=== PATIENT | female | born 1950 | race Caucasian/White ===

== ENCOUNTER 2018-04-15 12:29 | Inpatient (IN) | payer MEDICARE, OTHER ==
[~2018-04-15] VITALS: Ht 175.3 cm; Wt 71.0 kg
[2018-04-15] MEDS ORDERED: diltiazem 5mg/ml 5ml inj. IV ONE (12:45)
[2018-04-15] MEDS ORDERED: normal saline 1000ML IV soln IVB ONE (12:45)
[2018-04-15 13:02] LABS: BASOPHILS % (AUTO) 0.6 % (0-1); EOSINOPHILS # (AUTO) 0.6 X10'3 (0-0.9); HEMATOCRIT 42.7 % (35.0-45.0); HEMOGLOBIN 14.9 g/dl (12.0-16.0); LYMPHOCYTES # (AUTO) 1.9 X10'3 (1.1-4.8); LYMPHOCYTES % (AUTO) 23.8 % (21-51); MEAN CORPUSCULAR HGB CONC 34.8 % (33.0-36.5); MEAN CORPUSCULAR VOLUME 100.6 FL (78-98); MEAN PLATELET VOLUME 7.6 FL (7.4-10.4); MONOCYTES # (AUTO) 0.6 X10'3 (0-0.9); MONOCYTES % (AUTO) 7.4 % (2-12); NEUTROPHILS # (AUTO) 4.7 X10'3 (1.8-7.7); NEUTROPHILS % (AUTO) 60.2 % (42-75); PLATELET COUNT 271 X10'3 (140-440); RED BLOOD COUNT 4.24 X10'6 (4.20-5.60); RED CELL DISTRIBUTION WIDTH 17.5 % (11.5-14.5); WHITE BLOOD COUNT 7.8 X10'3 (4.5-11.0)
[2018-04-15 13:13] LABS: PARTIAL THROMBOPLASTIN TIME 26 SECONDS (22-32); PROTHROMBIN TIME 10.6 SECONDS (9.0-12.0)
[2018-04-15 13:19] LABS: ALANINE AMINOTRANSFERASE 19 U/L (12-78); ALBUMIN 3.4 G/DL (3.4-5.0); ALBUMIN/GLOBULIN RATIO 0.9 (1.1-1.5); ALKALINE PHOSPHATASE 76 IU/L (46-116); ANION GAP 7 (8-16); ASPARTATE AMINO TRANSFERASE 22 U/L (10-37); BILIRUBIN,TOTAL 0.7 MG/DL (0.1-1.0); BLOOD UREA NITROGEN 11 MG/DL (7-18); BUN/CREATININE RATIO 10.3 (6.6-38.0); CALCIUM 9.5 MG/DL (8.5-10.1); CHLORIDE 99 MMOL/L (99-107); CREATININE 1.07 MG/DL (0.40-0.90); GLUCOSE 143 MG/DL (70-104); SODIUM 135 MMOL/L (135-145); TOTAL CARBON DIOXIDE 28.7 MMOL/L (24-32); eGFR 51 ML/MIN
[2018-04-15 13:21] LABS: POTASSIUM 2.8 MMOL/L (3.5-5.1)
[2018-04-15] MEDS ORDERED: potass W/LIDOcaine 10mEq/100ml 100 ML IV ONE (13:25)
[2018-04-15] MEDS ORDERED: potassium Cl oral solution 20 MEQ/15 ML PO ONE (13:25)
[2018-04-15 13:28] LABS: CLARITY,URINE CLEAR (Clear); COLOR,URINE YELLOW (Yellow); GLUCOSE, URINE NEGATIVE (Neg); KETONES,URINE TRACE mg/dl (Neg); LEUKOCYTE ESTERASE ,URINE NEGATIVE (Neg); NITRITES, URINE NEGATIVE (Neg); OCCULT BLOOD,URINE NEGATIVE (Neg); PROTEIN,URINE 30 mg/dl (Neg); UROBILINOGEN,URINE 0.2 E.U/dL (0.2-1.0)
[2018-04-15] MEDS ORDERED: potassium 10mEq/100ml NS w/LIDOcaine (10mg/bag) IV ONE (13:35)
[2018-04-15 13:37] LABS: UA COLLECTION TYPE CLN CATCH MIDSTREAM
[2018-04-15 13:38] LABS: BACTERIA,URINE 1+ /HPF (Neg); MUCUS STRANDS MODERATE /LPF (Neg); RBC,URINE NONE SEEN /HPF (0-2); SQUAMOUS EPITHELIAL CELL,UR MANY /LPF (FEW); WBC,URINE 0-4 /HPF (0-4)
[2018-04-15 13:39] LABS: URINE AMPHETAMINE SCREEN POSITIVE (Neg); URINE BARBITUATE SCREEN NEGATIVE (Neg); URINE BENZODIAZEPINES SCREEN NEGATIVE (Neg); URINE CANNABINOID SCREEN POSITIVE (Neg); URINE COCAINE SCREEN NEGATIVE (Neg); URINE METHADONE SCREEN NEGATIVE (Neg); URINE OPIATE SCREEN NEGATIVE (Neg); URINE PHENCYCLIDINE SCREEN NEGATIVE (Neg)
[2018-04-15 13:44] LABS: MAGNESIUM 1.6 MG/DL (1.5-2.4); PHOSPHORUS 3.3 MG/DL (2.3-4.5)
[2018-04-15] MEDS ORDERED: normal saline 1000ml 1,000 ML IV ONE (13:45)
[2018-04-15] MEDS ORDERED: magnesium hydroxide 30ml (MOM) UD suspension PO PRN (14:25)
[2018-04-15] MEDS ORDERED: mag hydrox/Alum hydrox/simeth 30ml oral suspension PO PRN (14:25)
[2018-04-15] MEDS ORDERED: morphine 4 MG/ML inj SYRINge IV PRN (14:25)
[2018-04-15] MEDS ORDERED: Ivermectin 3mg tablet PO ONE ×2 (14:25→14:30)
[2018-04-15] MEDS ORDERED: iohexol 350MG/ML 100ml bottle IV ONE (14:49)
[2018-04-15] MEDS: magnesium 1gm/100ml D5W IVPB 100 ML IV SCH ×2 (16:10→16:55)
[2018-04-15 16:11] LABS: HEMOGLOBIN A1C 5.4 % (4.5-6.2)
[2018-04-15] MEDS ORDERED: magnesium 1gm/100ml D5W IVPB 100 ML IV ONE (16:53)
[2018-04-15] MEDS ORDERED: regadenoson 0.4mg/5ml syringe IV ONE (17:10)
[2018-04-15] MEDS ORDERED: digoxin 250mcg/ml 2ml ampule IV ONE (17:10)
[2018-04-15] MEDS ORDERED: nitroGLYCERIN 0.4mg SUBLingual tab SL PRN (17:10)
[2018-04-15] MEDS ORDERED: CAFFEINE CITRATE 60 MG/3 ML injection vial IV PRN (17:10)
[2018-04-15] MEDS ORDERED: metoprolol tartrate 1mg/ml inj IV PRN (17:10)
[2018-04-15] MEDS ORDERED: Permethrin Cream 60gm TP ONE (17:10)
[2018-04-15] MEDS: potassium cl 20mEq in 1/2 NS 1,000 ML IV SCH (18:01)
[2018-04-15] MEDS: normal saline 1000ml 1,000 ML IV SCH ×2 (19:00→22:10)
[2018-04-15 22:00] VITALS: BP 140/88
[2018-04-15] MEDS: apixaban 5mg tablet PO SCH (22:16)
[2018-04-16] MEDS: potassium cl 20mEq in 1/2 NS 1,000 ML IV SCH ×3 (00:24→20:40)
[2018-04-16] MEDS ORDERED: Permethrin 1% 59ml topical rinse TP ONE (00:50)
[2018-04-16 02:00] VITALS: BP 131/81
[2018-04-16 02:37] LABS: BASOPHILS % (AUTO) 0.4 % (0-1); EOSINOPHILS # (AUTO) 0.9 X10'3 (0-0.9); EOSINOPHILS % (AUTO) 13.1 % (0-6); HEMOGLOBIN 15.3 g/dl (12.0-16.0); LYMPHOCYTES # (AUTO) 2.1 X10'3 (1.1-4.8); LYMPHOCYTES % (AUTO) 32.3 % (21-51); MEAN CORPUSCULAR HEMOGLOBIN 35.2 PG (27.0-31.0); MEAN CORPUSCULAR VOLUME 103.4 FL (78-98); MEAN PLATELET VOLUME 7.8 FL (7.4-10.4); MONOCYTES # (AUTO) 0.6 X10'3 (0-0.9); MONOCYTES % (AUTO) 8.6 % (2-12); NEUTROPHILS % (AUTO) 45.6 % (42-75); PLATELET COUNT 233 X10'3 (140-440); RED BLOOD COUNT 4.35 X10'6 (4.20-5.60); RED CELL DISTRIBUTION WIDTH 18.3 % (11.5-14.5); WHITE BLOOD COUNT 6.7 X10'3 (4.5-11.0)
[2018-04-16 02:56] LABS: ALANINE AMINOTRANSFERASE 22 U/L (12-78); ALBUMIN 3.1 G/DL (3.4-5.0); ALBUMIN/GLOBULIN RATIO 0.8 (1.1-1.5); ALKALINE PHOSPHATASE 71 IU/L (46-116); ANION GAP 4 (8-16); ASPARTATE AMINO TRANSFERASE 21 U/L (10-37); BILIRUBIN,TOTAL 0.6 MG/DL (0.1-1.0); BLOOD UREA NITROGEN 9 MG/DL (7-18); BUN/CREATININE RATIO 10.5 (6.6-38.0); CALCIUM 8.7 MG/DL (8.5-10.1); CHLORIDE 109 MMOL/L (99-107); CHOL/HDL RATIO 3.7 (0.00-4.99); CHOLESTEROL 155 MG/DL (0-200); CREATININE 0.86 MG/DL (0.40-0.90); GLUCOSE 80 MG/DL (70-104); HDL CHOLESTEROL 42 MG/DL (35-60); LDL CHOLESTEROL 96 MG/DL (50-100); MAGNESIUM 2.1 MG/DL (1.5-2.4); PHOSPHORUS 3.2 MG/DL (2.3-4.5); POTASSIUM 3.8 MMOL/L (3.5-5.1); SODIUM 140 MMOL/L (135-145); TOTAL CARBON DIOXIDE 26.8 MMOL/L (24-32); TOTAL PROTEIN 6.8 G/DL (6.4-8.2); TRIGLYCERIDES 86 MG/DL (20-135); eGFR 66 ML/MIN
[2018-04-16] MEDS: normal saline 1000ml 1,000 ML IV SCH ×2 (03:32→08:10)
[2018-04-16] MEDS: apixaban 5mg tablet PO SCH ×2 (08:00→19:37)
[2018-04-16] MEDS: enoxaparin 40mg/0.4ml syringe SUBCUT SCH (08:00)
[2018-04-16] MEDS ORDERED: NO HOME MEDS (11:32)
[2018-04-16] MEDS ORDERED: NAPR-1154 PO (12:15)
[2018-04-16] MEDS ORDERED: Permethrin Cream 60gm TP ONE (12:15)
[2018-04-16] MEDS ORDERED: ASPI-1265 PO (12:15)
[2018-04-16 19:00] VITALS: BP 111/66
[2018-04-16] MEDS: acetaminophen 325mg tablet PO PRN (19:46)
[2018-04-16 23:00] VITALS: BP 121/68
[2018-04-16] MEDS: ondansetron/PF 4mg/2ml inj IV PRN (23:54)
[2018-04-17] MEDS: acetaminophen 325mg tablet PO PRN (02:18)
[2018-04-17 03:00] VITALS: BP 125/71
[2018-04-17] MEDS: normal saline 1000ml 1,000 ML IV SCH (05:30)
[2018-04-17 06:00] VITALS: BP 127/71
[2018-04-17 06:50] LABS: BASOPHILS % (AUTO) 0.7 % (0-1); EOSINOPHILS # (AUTO) 0.6 X10'3 (0-0.9); EOSINOPHILS % (AUTO) 9.7 % (0-6); HEMATOCRIT 38.4 % (35.0-45.0); LYMPHOCYTES # (AUTO) 1.8 X10'3 (1.1-4.8); LYMPHOCYTES % (AUTO) 30.7 % (21-51); MEAN CORPUSCULAR HGB CONC 33.9 % (33.0-36.5); MEAN CORPUSCULAR VOLUME 103.2 FL (78-98); MEAN PLATELET VOLUME 8.1 FL (7.4-10.4); MONOCYTES # (AUTO) 0.5 X10'3 (0-0.9); MONOCYTES % (AUTO) 7.8 % (2-12); NEUTROPHILS % (AUTO) 51.1 % (42-75); PLATELET COUNT 216 X10'3 (140-440); RED BLOOD COUNT 3.72 X10'6 (4.20-5.60); RED CELL DISTRIBUTION WIDTH 18.4 % (11.5-14.5); WHITE BLOOD COUNT 5.8 X10'3 (4.5-11.0)
[2018-04-17 07:33] LABS: ALANINE AMINOTRANSFERASE 19 U/L (12-78); ALBUMIN 2.6 G/DL (3.4-5.0); ALBUMIN/GLOBULIN RATIO 0.8 (1.1-1.5); ALKALINE PHOSPHATASE 60 IU/L (46-116); ANION GAP 6 (8-16); ASPARTATE AMINO TRANSFERASE 24 U/L (10-37); BILIRUBIN,TOTAL 0.3 MG/DL (0.1-1.0); BLOOD UREA NITROGEN 4 MG/DL (7-18); BUN/CREATININE RATIO 6.3 (6.6-38.0); CALCIUM 8.3 MG/DL (8.5-10.1); CHLORIDE 112 MMOL/L (99-107); CREATININE 0.64 MG/DL (0.40-0.90); GLUCOSE 82 MG/DL (70-104); MAGNESIUM 1.7 MG/DL (1.5-2.4); PHOSPHORUS 3.3 MG/DL (2.3-4.5); POTASSIUM 3.9 MMOL/L (3.5-5.1); SODIUM 143 MMOL/L (135-145); TOTAL CARBON DIOXIDE 25.3 MMOL/L (24-32); TOTAL PROTEIN 5.7 G/DL (6.4-8.2); eGFR > 90 ML/MIN
[2018-04-17] MEDS: apixaban 5mg tablet PO SCH ×2 (09:25→20:00)
[2018-04-17] MEDS: enoxaparin 40mg/0.4ml syringe SUBCUT SCH (09:26)
[2018-04-17] MEDS: ondansetron/PF 4mg/2ml inj IV PRN (09:31)
[2018-04-17] MEDS ORDERED: ondansetron 4mg rapidly disintigrating tab PO PRN (10:35)
[2018-04-17] MEDS ORDERED: meclizine 12.5mg tablet PO PRN (10:35)
[2018-04-17 11:00] VITALS: BP 135/75
[2018-04-17 15:00] VITALS: BP 138/82
[2018-04-17 19:00] VITALS: BP 121/74
[2018-04-17] MEDS: HYDROcodone/acetaminophen 5mg/325mg tablet PO PRN (21:31)
[2018-04-17 23:00] VITALS: BP 125/69
[2018-04-18 03:00] VITALS: BP 107/59
[2018-04-18 06:00] VITALS: BP 144/83
[2018-04-18 06:13] LABS: BASOPHILS % (AUTO) 0.4 % (0-1); EOSINOPHILS # (AUTO) 0.4 X10'3 (0-0.9); EOSINOPHILS % (AUTO) 6.9 % (0-6); HEMATOCRIT 41.1 % (35.0-45.0); HEMOGLOBIN 13.8 g/dl (12.0-16.0); LYMPHOCYTES # (AUTO) 1.5 X10'3 (1.1-4.8); LYMPHOCYTES % (AUTO) 23.9 % (21-51); MEAN CORPUSCULAR HGB CONC 33.6 % (33.0-36.5); MEAN PLATELET VOLUME 8.1 FL (7.4-10.4); MONOCYTES # (AUTO) 0.4 X10'3 (0-0.9); MONOCYTES % (AUTO) 7.2 % (2-12); NEUTROPHILS # (AUTO) 3.9 X10'3 (1.8-7.7); NEUTROPHILS % (AUTO) 61.6 % (42-75); PLATELET COUNT 215 X10'3 (140-440); RED BLOOD COUNT 3.95 X10'6 (4.20-5.60); RED CELL DISTRIBUTION WIDTH 17.9 % (11.5-14.5); WHITE BLOOD COUNT 6.3 X10'3 (4.5-11.0)
[2018-04-18 06:26] LABS: ALANINE AMINOTRANSFERASE 24 U/L (12-78); ALBUMIN 2.8 G/DL (3.4-5.0); ALBUMIN/GLOBULIN RATIO 0.8 (1.1-1.5); ALKALINE PHOSPHATASE 63 IU/L (46-116); ANION GAP 3 (8-16); ASPARTATE AMINO TRANSFERASE 18 U/L (10-37); BILIRUBIN,TOTAL 0.3 MG/DL (0.1-1.0); BLOOD UREA NITROGEN 5 MG/DL (7-18); BUN/CREATININE RATIO 7.2 (6.6-38.0); CALCIUM 9.1 MG/DL (8.5-10.1); CHLORIDE 109 MMOL/L (99-107); CREATININE 0.69 MG/DL (0.40-0.90); GLUCOSE 82 MG/DL (70-104); MAGNESIUM 1.8 MG/DL (1.5-2.4); PHOSPHORUS 3.8 MG/DL (2.3-4.5); POTASSIUM 3.6 MMOL/L (3.5-5.1); SODIUM 142 MMOL/L (135-145); TOTAL CARBON DIOXIDE 29.6 MMOL/L (24-32); TOTAL PROTEIN 6.2 G/DL (6.4-8.2); eGFR 85 ML/MIN
[2018-04-18] MEDS: apixaban 5mg tablet PO SCH (08:50)
[2018-04-18] MEDS: HYDROcodone/acetaminophen 5mg/325mg tablet PO PRN (08:51)
[2018-04-18 11:00] VITALS: BP 140/81
[2018-04-18] MEDS ORDERED: acetaminophen 325mg tablet PO PRN ×2 (12:55→17:50)
[2018-04-18 15:00] VITALS: BP 113/65
[2018-04-18] MEDS ORDERED: naproxen 500mg tablet PO PRN (15:25)
[2018-04-18 19:00] VITALS: BP 158/90
[2018-04-19] MEDS ORDERED: aspirin 81mg tablet.DR PO SCH (08:00)
== END 2018-04-18 19:15 | disposition home or self-care (01) | DRG 206 ==
LOC: ER 12:30 → ED HOLD 14:36 → PCU 3S 20:51
PROVIDERS: ADMIT Internal Medicine; ATTEND Internal Medicine
PROC: B32T1ZZ Computerized Tomography (CT Scan) of Left Pulmonary Artery using Low Osmolar Contrast (ICD-10-PCS; principal; 2018-04-15)
PROC: B32S1ZZ Computerized Tomography (CT Scan) of Right Pulmonary Artery using Low Osmolar Contrast (ICD-10-PCS; 2018-04-15)
DX: M94.0 Chondrocostal junction syndrome [Tietze] (principal); H81.09 Meniere's disease, unspecified ear; E87.6 Hypokalemia; E86.0 Dehydration; F15.10 Other stimulant abuse, uncomplicated; I48.91 Unspecified atrial fibrillation; B86 Scabies; F17.210 Nicotine dependence, cigarettes, uncomplicated; I10 Essential (primary) hypertension; Z59.0 Homelessness; Z88.0 Allergy status to penicillin; Z88.5 Allergy status to narcotic agent; Z79.82 Long term (current) use of aspirin; Z79.899 Other long term (current) drug therapy
CPT/HCPCS: 36415; 71045; 71275; 80053; 80061; 80305; 81001; 83036; 83735; 84100; 84484; 85025; 85610; 85730; 87070; 93005; 93306; 96365; 96375; 99285; J1160; J1650; J2270; J2405; J3480; J3490; J7030; Q9967

== ENCOUNTER 2019-05-13 03:06 | Emergency (ER) | payer MEDICARE, MEDICAID ==
[~2019-05-13] VITALS: Ht 175.3 cm; Wt 63.6 kg
[~2019-05-13 03:06] MED LIST: NAPR-1154 PO; NO HOME MEDS
[2019-05-13 03:35] LABS: BASOPHILS % (AUTO) 0.5 % (0-1); EOSINOPHILS # (AUTO) 0.1 X10'3 (0-0.9); EOSINOPHILS % (AUTO) 1.3 % (0-6); HEMATOCRIT 41.1 % (35.0-45.0); HEMOGLOBIN 14.2 g/dl (12.0-16.0); LYMPHOCYTES # (AUTO) 1.8 X10'3 (1.1-4.8); LYMPHOCYTES % (AUTO) 26.1 % (21-51); MEAN CORPUSCULAR HEMOGLOBIN 33.9 PG (27.0-31.0); MEAN CORPUSCULAR HGB CONC 34.5 g/dL (33.0-36.5); MEAN CORPUSCULAR VOLUME 98.5 FL (78-98); MEAN PLATELET VOLUME 7.7 FL (7.4-10.4); MONOCYTES # (AUTO) 0.4 X10'3 (0-0.9); MONOCYTES % (AUTO) 5.6 % (2-12); NEUTROPHILS # (AUTO) 4.7 X10'3 (1.8-7.7); NEUTROPHILS % (AUTO) 66.5 % (42-75); PLATELET COUNT 210 X10'3 (140-440); RED BLOOD COUNT 4.18 X10'6 (4.20-5.60); RED CELL DISTRIBUTION WIDTH 13.2 % (11.5-14.5); WHITE BLOOD COUNT 7.1 X10'3 (4.5-11.0)
[2019-05-13 03:37] VITALS: BP 165/94
[2019-05-13 03:47] LABS: PARTIAL THROMBOPLASTIN TIME 27 SECONDS (22-32)
[2019-05-13 03:49] LABS: ALANINE AMINOTRANSFERASE 19 U/L (12-78); ALBUMIN 3.7 G/DL (3.4-5.0); ALBUMIN/GLOBULIN RATIO 1.1 (1.1-1.5); ALKALINE PHOSPHATASE 83 IU/L (46-116); ANION GAP 9 (8-16); ASPARTATE AMINO TRANSFERASE 13 U/L (10-37); BILIRUBIN,TOTAL 0.4 MG/DL (0.1-1.0); BLOOD UREA NITROGEN 9 MG/DL (7-18); BUN/CREATININE RATIO 11.8 (6.6-38.0); CALCIUM 9.7 MG/DL (8.5-10.1); CHLORIDE 105 MMOL/L (99-107); CREATININE 0.76 MG/DL (0.40-0.90); GLUCOSE 104 MG/DL (70-104); SODIUM 142 MMOL/L (135-145); TOTAL PROTEIN 7.2 G/DL (6.4-8.2); eGFR 76 ML/MIN
[2019-05-13] MEDS ORDERED: acetaminophen 325mg tablet PO ONE (04:00)
[2019-05-13] MEDS ORDERED: MECL-111 PO (04:17)
== END 2019-05-13 05:10 | disposition home or self-care (01) ==
LOC: ER 03:06
DX: R07.89 Other chest pain (principal); I10 Essential (primary) hypertension; F17.200 Nicotine dependence, unspecified, uncomplicated; Z88.0 Allergy status to penicillin; Z88.5 Allergy status to narcotic agent; Z79.899 Other long term (current) drug therapy
CPT/HCPCS: 36415; 71045; 80053; 84484; 85025; 85610; 85730; 93005; 99284

== ENCOUNTER 2019-06-24 17:00 | Emergency (ER) | payer MEDICARE, MEDICAID ==
[~2019-06-24] VITALS: Ht 175.3 cm; Wt 82.5 kg
[~2019-06-24 17:00] MED LIST changes: +MECL-111 PO
--- NOTE | 2019-06-24 17:15 | NUR ---
INITIALLY PATIENT DID NOT WANT TO REMOVE HER LONG "PUFFER TYPE" COAT. WITH SOME REASSURANCE AND A BLANKET, PATIENT AGREED TO REMOVE HER COAT IN ORDER TO OBTAIN VITAL SIGNS AND AN IV
[2019-06-24] MEDS ORDERED: normal saline 1000ML IV soln IVB ONE (17:25)
[2019-06-24 18:10] LABS: ALANINE AMINOTRANSFERASE 58 U/L (12-78); ALBUMIN 3.3 G/DL (3.4-5.0); ALBUMIN/GLOBULIN RATIO 0.9 (1.1-1.5); ALKALINE PHOSPHATASE 67 IU/L (46-116); ANION GAP 17 (8-16); ASPARTATE AMINO TRANSFERASE 48 U/L (10-37); BILIRUBIN,TOTAL 0.5 MG/DL (0.1-1.0); BLOOD UREA NITROGEN 8 MG/DL (7-18); BUN/CREATININE RATIO 8.5 (6.6-38.0); CALCIUM 9.5 MG/DL (8.5-10.1); CHLORIDE 104 MMOL/L (99-107); CREATININE 0.94 MG/DL (0.40-0.90); ETHANOL 0.063 GM/DL (0.0-0.010); GLUCOSE 116 MG/DL (70-104); POTASSIUM 3.2 MMOL/L (3.5-5.1); SODIUM 144 MMOL/L (135-145); TOTAL CARBON DIOXIDE 23.4 MMOL/L (24-32); eGFR 59 ML/MIN
[2019-06-24 18:31] LABS: BASOPHILS # (AUTO) 0.1 X10'3 (0-0.2); BASOPHILS % (AUTO) 0.9 % (0-1); EOSINOPHILS # (AUTO) 0.1 X10'3 (0-0.9); EOSINOPHILS % (AUTO) 1.6 % (0-6); HEMATOCRIT 34.5 % (35.0-45.0); LYMPHOCYTES # (AUTO) 1.2 X10'3 (1.1-4.8); LYMPHOCYTES % (AUTO) 18.6 % (21-51); MEAN CORPUSCULAR HEMOGLOBIN 34.8 PG (27.0-31.0); MEAN CORPUSCULAR HGB CONC 34.8 g/dL (33.0-36.5); MEAN PLATELET VOLUME 7.5 FL (7.4-10.4); MONOCYTES # (AUTO) 0.5 X10'3 (0-0.9); MONOCYTES % (AUTO) 7.9 % (2-12); NEUTROPHILS # (AUTO) 4.7 X10'3 (1.8-7.7); PLATELET COUNT 295 X10'3 (140-440); RED BLOOD COUNT 3.45 X10'6 (4.20-5.60); RED CELL DISTRIBUTION WIDTH 14.5 % (11.5-14.5); WHITE BLOOD COUNT 6.6 X10'3 (4.5-11.0)
--- NOTE | 2019-06-24 18:45 | NUR ---
LUIS MANUEL ZHAO STATED TO DR ZALDIVAR THAT HE WOULD GET THE PATIENT FOOD
[2019-06-24] MEDS: POTASSIUM BICARB 20meq eff tab 20 MEQ TABLET.EFF PO ONE ×2 (18:54→18:58)
--- NOTE | 2019-06-24 19:00 | NUR ---
LUIS MANUEL ZHAO DISCHARGED THE PATIENT IN HER OWN SOCKS, NO SHOES
--- NOTE | 2019-06-24 19:01 | NUR ---
DR ZALDIVAR INFORMED THAT PATIENT DID NOT RECIEVE HER POTASSIUM VERBALLY / COMPUTR ORDER TO DISCHARGING RN
[2019-06-24 19:12] VITALS: BP 124/59
[2019-06-24 19:28] LABS: URINE AMPHETAMINE SCREEN NEGATIVE (Neg); URINE BARBITUATE SCREEN NEGATIVE (Neg); URINE BENZODIAZEPINES SCREEN NEGATIVE (Neg); URINE CANNABINOID SCREEN POSITIVE (Neg); URINE COCAINE SCREEN NEGATIVE (Neg); URINE METHADONE SCREEN NEGATIVE (Neg); URINE OPIATE SCREEN NEGATIVE (Neg); URINE PHENCYCLIDINE SCREEN NEGATIVE (Neg)
== END 2019-06-24 19:05 | disposition home or self-care (01) ==
LOC: ER 17:01
DX: F10.20 Alcohol dependence, uncomplicated (principal); E87.6 Hypokalemia; I10 Essential (primary) hypertension; F17.200 Nicotine dependence, unspecified, uncomplicated; Z59.0 Homelessness; Z88.0 Allergy status to penicillin; Z88.5 Allergy status to narcotic agent; Y90.9 Presence of alcohol in blood, level not specified
CPT/HCPCS: 36415; 71045; 80053; 80305; 80320; 85025; 99284; J7030

== ENCOUNTER 2019-06-26 12:18 | Emergency (ER) | payer MEDICARE, MEDICAID ==
[~2019-06-26] VITALS: Ht 172.7 cm; Wt 70.0 kg
[2019-06-26 15:47] VITALS: BP 131/75
== END 2019-06-26 15:49 | disposition home or self-care (01) ==
LOC: ER 12:19
DX: F99 Mental disorder, not otherwise specified (principal); R44.0 Auditory hallucinations; F31.9 Bipolar disorder, unspecified; F43.10 Post-traumatic stress disorder, unspecified; I10 Essential (primary) hypertension; Z59.0 Homelessness; Z88.0 Allergy status to penicillin; Z88.6 Allergy status to analgesic agent; Z79.899 Other long term (current) drug therapy; Z60.2 Problems related to living alone
CPT/HCPCS: 99284

== ENCOUNTER 2020-02-02 10:49 | Emergency (ER) | payer MEDICARE, MEDICAID ==
[~2020-02-02] VITALS: Ht 175.3 cm; Wt 70.5 kg
[~2020-02-02 10:49] MED LIST changes: -MECL-111 PO; +MECL-159 PO
[2020-02-02 11:20] LABS: BASOPHILS # (AUTO) 0.1 X10'3 (0-0.2); BASOPHILS % (AUTO) 0.8 % (0-1); EOSINOPHILS # (AUTO) 0.1 X10'3 (0-0.9); EOSINOPHILS % (AUTO) 1.1 % (0-6); HEMOGLOBIN 14.4 g/dl (12.0-16.0); LYMPHOCYTES % (AUTO) 27.9 % (21-51); MEAN CORPUSCULAR HEMOGLOBIN 34.3 PG (27.0-31.0); MEAN CORPUSCULAR HGB CONC 33.4 g/dL (33.0-36.5); MEAN CORPUSCULAR VOLUME 102.7 FL (78-98); MEAN PLATELET VOLUME 7.7 FL (7.4-10.4); MONOCYTES # (AUTO) 0.6 X10'3 (0-0.9); MONOCYTES % (AUTO) 7.9 % (2-12); NEUTROPHILS # (AUTO) 4.5 X10'3 (1.8-7.7); NEUTROPHILS % (AUTO) 62.3 % (42-75); PLATELET COUNT 218 X10'3 (140-440); RED BLOOD COUNT 4.19 X10'6 (4.20-5.60); RED CELL DISTRIBUTION WIDTH 15.2 % (11.5-14.5); WHITE BLOOD COUNT 7.2 X10'3 (4.5-11.0)
[2020-02-02 11:33] LABS: ALANINE AMINOTRANSFERASE 12 U/L (12-78); ALBUMIN 3.2 G/DL (3.4-5.0); ALBUMIN/GLOBULIN RATIO 0.9 (1.1-1.5); ALKALINE PHOSPHATASE 98 IU/L (46-116); ANION GAP 4 (8-16); ASPARTATE AMINO TRANSFERASE 15 U/L (10-37); BILIRUBIN,TOTAL 0.5 MG/DL (0.1-1.0); BLOOD UREA NITROGEN 7 MG/DL (7-18); BUN/CREATININE RATIO 8.1 (6.6-38.0); CALCIUM 8.7 MG/DL (8.5-10.1); CHLORIDE 105 MMOL/L (99-107); CREATININE 0.86 MG/DL (0.40-0.90); GLUCOSE 114 MG/DL (70-104); POTASSIUM 3.7 MMOL/L (3.5-5.1); SODIUM 140 MMOL/L (135-145); TOTAL CARBON DIOXIDE 30.9 MMOL/L (24-32); TOTAL PROTEIN 6.6 G/DL (6.4-8.2); eGFR 65 ML/MIN
[2020-02-02 12:10] VITALS: BP 143/87
== END 2020-02-02 11:54 | disposition home or self-care (01) ==
LOC: ER 10:50
DX: J44.9 Chronic obstructive pulmonary disease, unspecified (principal); R11.10 Vomiting, unspecified; R10.9 Unspecified abdominal pain; M53.1 Cervicobrachial syndrome; I10 Essential (primary) hypertension; F31.9 Bipolar disorder, unspecified; F12.90 Cannabis use, unspecified, uncomplicated; Z60.2 Problems related to living alone; Z59.0 Homelessness; Z88.0 Allergy status to penicillin; Z88.5 Allergy status to narcotic agent; Z79.899 Other long term (current) drug therapy
CPT/HCPCS: 36415; 71045; 80053; 85025; 93005; 99285

== ENCOUNTER 2020-02-16 11:57 | Emergency (ER) | payer MEDICARE, MEDICAID ==
[~2020-02-16] VITALS: Ht 162.6 cm; Wt 63.6 kg
[2020-02-16 12:27] VITALS: BP 125/86
--- NOTE | 2020-02-16 12:40 | NUR ---
At approx. 1235 patient began to thrashing from side to side. I then stated to her as I touched her right leg, "this is not was a seizure looks like you need to stop." Patient stopped. Patient then began thrashing up and down on the gurney. I stated, "this is also not was a seizure looks like, you need to stop." She stops. I then ask, "Do you have a history of seizures." no response. per patients history she does not. I stated to the patient that she needs to stop trying to fake a seizure. I then asked if she had fallen, she shook her head. I asked, "Ok what happened before the fall." She stated, "I was sitting and then fell." I asked her if anything hurt, she pointed down at her right leg and left lateral head. I asked is it your right hip, knee, foot? She whispered, "foot". Notified MYLES Castañeda regarding encounter.
--- NOTE | 2020-02-16 13:02 | NUR ---
Patient is now requesting to leave ED. Patient states, "they forgot my walker". States she was picked up from the [facility] parking lot [address] and that it was in the parking lot with her.
--- NOTE | 2020-02-16 13:06 | NUR ---
Called [facility] regarding patients walker, dispatch stated that she would notify [facility] to call and let me know. If they had seen a walker at scene.
--- NOTE | 2020-02-16 13:18 | NUR ---
Sari called patient stated that [facility] has patients walker and that they will release it to her at time of picker packer.
[2020-02-16] MEDS ORDERED: meclizine 12.5mg tablet PO ONE (13:35)
[2020-02-16] MEDS ORDERED: LORazepam 0.5 MG tablet PO STA (13:35)
[2020-02-16] MEDS: normal saline 1000ML IV soln IVB ONE ×2 (13:52→14:03)
[2020-02-16 14:06] LABS: BASOPHILS # (AUTO) 0.1 X10'3 (0-0.2); EOSINOPHILS # (AUTO) 0.1 X10'3 (0-0.9); EOSINOPHILS % (AUTO) 2.1 % (0-6); HEMATOCRIT 43.7 % (35.0-45.0); HEMOGLOBIN 14.9 g/dl (12.0-16.0); LYMPHOCYTES # (AUTO) 1.9 X10'3 (1.1-4.8); LYMPHOCYTES % (AUTO) 28.2 % (21-51); MEAN CORPUSCULAR HEMOGLOBIN 35.3 PG (27.0-31.0); MEAN CORPUSCULAR HGB CONC 34.1 g/dL (33.0-36.5); MEAN CORPUSCULAR VOLUME 103.5 FL (78-98); MEAN PLATELET VOLUME 7.8 FL (7.4-10.4); MONOCYTES # (AUTO) 0.5 X10'3 (0-0.9); MONOCYTES % (AUTO) 7.6 % (2-12); NEUTROPHILS % (AUTO) 61.1 % (42-75); PLATELET COUNT 256 X10'3 (140-440); RED BLOOD COUNT 4.22 X10'6 (4.20-5.60); RED CELL DISTRIBUTION WIDTH 14.6 % (11.5-14.5); WHITE BLOOD COUNT 6.6 X10'3 (4.5-11.0)
--- NOTE | 2020-02-16 14:10 | NUR ---
PT REFUSED TO TAKE IV FLUIDS,NOTIFIED MYLES LEAL PER PA IF PT DOES NOT WANT IT ,TAKE THE IV OUT.IV CANNULA REMOVED.PT RESTING IN BED QUIETLY AND CALM AT THIS MOMENT.
[2020-02-16 14:19] LABS: ALANINE AMINOTRANSFERASE 15 U/L (12-78); ALBUMIN 3.4 G/DL (3.4-5.0); ALBUMIN/GLOBULIN RATIO 0.9 (1.1-1.5); ALKALINE PHOSPHATASE 69 IU/L (46-116); ANION GAP 6 (8-16); ASPARTATE AMINO TRANSFERASE 19 U/L (10-37); BILIRUBIN,TOTAL 0.6 MG/DL (0.1-1.0); BLOOD UREA NITROGEN 12 MG/DL (7-18); BUN/CREATININE RATIO 13.3 (6.6-38.0); CALCIUM 9.3 MG/DL (8.5-10.1); CHLORIDE 107 MMOL/L (99-107); GLUCOSE 101 MG/DL (70-104); POTASSIUM 3.9 MMOL/L (3.5-5.1); SODIUM 139 MMOL/L (135-145); TOTAL CARBON DIOXIDE 26.1 MMOL/L (24-32); eGFR 62 ML/MIN
== END 2020-02-16 15:02 | disposition home or self-care (01) ==
LOC: ER 11:58
DX: R42 Dizziness and giddiness (principal); H93.13 Tinnitus, bilateral; R11.2 Nausea with vomiting, unspecified; I10 Essential (primary) hypertension; J44.9 Chronic obstructive pulmonary disease, unspecified; F31.9 Bipolar disorder, unspecified; F12.90 Cannabis use, unspecified, uncomplicated; F17.210 Nicotine dependence, cigarettes, uncomplicated; Z60.2 Problems related to living alone; Z59.0 Homelessness; Z88.0 Allergy status to penicillin; Z88.5 Allergy status to narcotic agent; Z79.899 Other long term (current) drug therapy
CPT/HCPCS: 36415; 71045; 80053; 85025; 93005; 99285; J8597; J7030

== ENCOUNTER 2020-02-18 00:23 | Emergency (ER) | payer MEDICARE, MEDICAID ==
[~2020-02-18] VITALS: Ht 172.7 cm; Wt 59.1 kg
[2020-02-18 00:26] VITALS: BP 171/15
--- NOTE | 2020-02-18 00:46 | NUR ---
Pt. to CT scan at this time with limited radiology technician.
[2020-02-18 01:01] LABS: BASOPHILS % (AUTO) 0.4 % (0-1); EOSINOPHILS # (AUTO) 0.1 X10'3 (0-0.9); EOSINOPHILS % (AUTO) 0.9 % (0-6); HEMATOCRIT 45.3 % (35.0-45.0); HEMOGLOBIN 15.4 g/dl (12.0-16.0); LYMPHOCYTES # (AUTO) 1.2 X10'3 (1.1-4.8); LYMPHOCYTES % (AUTO) 13.2 % (21-51); MEAN CORPUSCULAR HEMOGLOBIN 35.1 PG (27.0-31.0); MEAN CORPUSCULAR HGB CONC 34.1 g/dL (33.0-36.5); MEAN CORPUSCULAR VOLUME 103.1 FL (78-98); MEAN PLATELET VOLUME 8.2 FL (7.4-10.4); MONOCYTES # (AUTO) 0.6 X10'3 (0-0.9); MONOCYTES % (AUTO) 6.9 % (2-12); NEUTROPHILS # (AUTO) 7.2 X10'3 (1.8-7.7); NEUTROPHILS % (AUTO) 78.6 % (42-75); PLATELET COUNT 259 X10'3 (140-440); RED BLOOD COUNT 4.39 X10'6 (4.20-5.60); RED CELL DISTRIBUTION WIDTH 14.5 % (11.5-14.5); WHITE BLOOD COUNT 9.1 X10'3 (4.5-11.0)
--- NOTE | 2020-02-18 01:03 | NUR ---
Pt. back to ED room 16 at this time.
[2020-02-18 01:12] LABS: ALANINE AMINOTRANSFERASE 16 U/L (12-78); ALBUMIN 3.6 G/DL (3.4-5.0); ALKALINE PHOSPHATASE 75 IU/L (46-116); ANION GAP 5 (8-16); ASPARTATE AMINO TRANSFERASE 16 U/L (10-37); BILIRUBIN,TOTAL 0.6 MG/DL (0.1-1.0); BLOOD UREA NITROGEN 12 MG/DL (7-18); BUN/CREATININE RATIO 11.3 (6.6-38.0); CALCIUM 9.3 MG/DL (8.5-10.1); CHLORIDE 106 MMOL/L (99-107); CREATININE 1.06 MG/DL (0.40-0.90); GLUCOSE 135 MG/DL (70-104); POTASSIUM 3.6 MMOL/L (3.5-5.1); SODIUM 140 MMOL/L (135-145); TOTAL CARBON DIOXIDE 28.6 MMOL/L (24-32); TOTAL PROTEIN 7.3 G/DL (6.4-8.2); eGFR 51 ML/MIN
--- NOTE | 2020-02-18 01:46 | NUR ---
I sent her clothes and shoes upstairs to get dried in dryer.
== END 2020-02-18 02:23 | disposition home or self-care (01) ==
LOC: MERGE 00:24 → ER 00:24
DX: S09.90XA Unspecified injury of head, initial encounter (principal); T69.9XXA Effect of reduced temperature, unspecified, initial encounter; R11.0 Nausea; F17.200 Nicotine dependence, unspecified, uncomplicated; Z88.5 Allergy status to narcotic agent; Z59.0 Homelessness; W01.198A Fall on same level from slipping, tripping and stumbling with subsequent striking against other object, initial encounter; Y93.89 Activity, other specified; Y92.89 Other specified places as the place of occurrence of the external cause; Y99.9 Unspecified external cause status
CPT/HCPCS: 36415; 70450; 80053; 85025; 99284

== ENCOUNTER 2020-02-18 16:23 | Emergency (ER) | payer MEDICARE, MEDICAID ==
[~2020-02-18] VITALS: Ht 172.7 cm; Wt 66.0 kg
[2020-02-18 16:47] VITALS: BP 112/76
== END 2020-02-18 18:09 | disposition left against medical advice (07) ==
LOC: ER 16:24 → MERGE 16:24 → ER 18:09
DX: Z00.8 Encounter for other general examination (principal); Z53.21 Procedure and treatment not carried out due to patient leaving prior to being seen by health care provider

== ENCOUNTER 2020-02-20 10:22 | Emergency (ER) | payer MEDICARE, MEDICAID ==
--- NOTE | 2020-02-20 10:30 | NUR ---
PT BIB EMS FROM THE STREET, PT EVALUATED, SCREENED AND DISCHARGED IN THE TRUONG BY , SENT OUT TO THE LOBBY TO WAIT AND THEN WALKED OUT BEFORE RECEIVING HER DC PAPERWORK.
== END 2020-02-20 10:34 | disposition home or self-care (01) ==
LOC: ER 10:22
DX: M79.10 Myalgia, unspecified site (principal); I10 Essential (primary) hypertension; J44.9 Chronic obstructive pulmonary disease, unspecified; F31.9 Bipolar disorder, unspecified; F17.210 Nicotine dependence, cigarettes, uncomplicated; F12.90 Cannabis use, unspecified, uncomplicated; Z59.0 Homelessness; Z60.2 Problems related to living alone; Z72.89 Other problems related to lifestyle; Z88.0 Allergy status to penicillin; Z88.5 Allergy status to narcotic agent; Z79.899 Other long term (current) drug therapy
CPT/HCPCS: 99283

== ENCOUNTER 2020-02-26 21:14 | Emergency (ER) | payer MEDICARE, MEDICAID ==
[~2020-02-26] VITALS: Ht 175.3 cm; Wt 68.1 kg
[2020-02-26 21:55] LABS: BASOPHILS % (AUTO) 0.7 % (0-1); EOSINOPHILS # (AUTO) 0.1 X10'3 (0-0.9); HEMATOCRIT 42.7 % (35.0-45.0); HEMOGLOBIN 14.6 g/dl (12.0-16.0); LYMPHOCYTES # (AUTO) 2.2 X10'3 (1.1-4.8); LYMPHOCYTES % (AUTO) 37.5 % (21-51); MEAN CORPUSCULAR HEMOGLOBIN 35.1 PG (27.0-31.0); MEAN CORPUSCULAR HGB CONC 34.2 g/dL (33.0-36.5); MEAN CORPUSCULAR VOLUME 102.5 FL (78-98); MEAN PLATELET VOLUME 8.7 FL (7.4-10.4); MONOCYTES # (AUTO) 0.4 X10'3 (0-0.9); MONOCYTES % (AUTO) 7.2 % (2-12); NEUTROPHILS % (AUTO) 52.6 % (42-75); PLATELET COUNT 198 X10'3 (140-440); RED BLOOD COUNT 4.17 X10'6 (4.20-5.60); RED CELL DISTRIBUTION WIDTH 13.5 % (11.5-14.5); WHITE BLOOD COUNT 5.8 X10'3 (4.5-11.0)
[2020-02-26 22:05] LABS: PARTIAL THROMBOPLASTIN TIME 26 SECONDS (22-32)
[2020-02-26 22:07] LABS: ALANINE AMINOTRANSFERASE 18 U/L (12-78); ALBUMIN/GLOBULIN RATIO 0.9 (1.1-1.5); ALKALINE PHOSPHATASE 72 IU/L (46-116); ANION GAP 5 (8-16); ASPARTATE AMINO TRANSFERASE 17 U/L (10-37); BILIRUBIN,TOTAL 0.5 MG/DL (0.1-1.0); BLOOD UREA NITROGEN 7 MG/DL (7-18); BUN/CREATININE RATIO 8.3 (6.6-38.0); CALCIUM 9.1 MG/DL (8.5-10.1); CHLORIDE 108 MMOL/L (99-107); CREATININE 0.84 MG/DL (0.40-0.90); GLUCOSE 96 MG/DL (70-104); POTASSIUM 3.4 MMOL/L (3.5-5.1); SODIUM 143 MMOL/L (135-145); TOTAL CARBON DIOXIDE 29.6 MMOL/L (24-32); TOTAL PROTEIN 6.3 G/DL (6.4-8.2); eGFR 67 ML/MIN
[2020-02-26 22:10] LABS: ETHANOL < 0.010 GM/DL (0.0-0.010); TROPONIN I < 0.04 NG/ML (0.0-0.05)
[2020-02-26 22:26] LABS: CLARITY,URINE SLIGHTLY CLOUDY (Clear); COLOR,URINE YELLOW (Yellow); GLUCOSE, URINE NEGATIVE (Neg); KETONES,URINE NEGATIVE (Neg); LEUKOCYTE ESTERASE ,URINE MODERATE (Neg); NITRITES, URINE NEGATIVE (Neg); OCCULT BLOOD,URINE NEGATIVE (Neg); PH,URINE 6.5 (4.8-8.0); PROTEIN,URINE NEGATIVE (Neg)
[2020-02-26 22:27] LABS: UA COLLECTION TYPE NON-SPECIFIED
[2020-02-26 22:31] LABS: BACTERIA,URINE NONE SEEN /HPF (Neg); RBC,URINE NONE SEEN /HPF (0-2); SQUAMOUS EPITHELIAL CELL,UR FEW /LPF (FEW); WBC,URINE 0-4 /HPF (0-4)
[2020-02-26] MEDS ORDERED: NITR100C6 PO (22:35)
[2020-02-26 22:39] LABS: URINE AMPHETAMINE SCREEN NEGATIVE (Neg); URINE BARBITUATE SCREEN NEGATIVE (Neg); URINE BENZODIAZEPINES SCREEN NEGATIVE (Neg); URINE CANNABINOID SCREEN NEGATIVE (Neg); URINE COCAINE SCREEN NEGATIVE (Neg); URINE METHADONE SCREEN NEGATIVE (Neg); URINE OPIATE SCREEN NEGATIVE (Neg); URINE PHENCYCLIDINE SCREEN NEGATIVE (Neg)
[2020-02-26 23:13] VITALS: BP 166/80
== END 2020-02-26 23:17 | disposition home or self-care (01) ==
LOC: ER 21:14
DX: N39.0 Urinary tract infection, site not specified (principal); R53.83 Other fatigue; R53.1 Weakness; I10 Essential (primary) hypertension; J44.9 Chronic obstructive pulmonary disease, unspecified; F31.9 Bipolar disorder, unspecified; F12.90 Cannabis use, unspecified, uncomplicated; R79.1 Abnormal coagulation profile; Z72.89 Other problems related to lifestyle; Z60.2 Problems related to living alone; Z59.0 Homelessness; Z88.0 Allergy status to penicillin; Z88.5 Allergy status to narcotic agent; Z79.899 Other long term (current) drug therapy
CPT/HCPCS: 36415; 71045; 80053; 80305; 80320; 81001; 83605; 84484; 85025; 85610; 85730; 87040; 87088; 93005; 99285

== ENCOUNTER 2020-03-07 15:10 | Emergency (ER) | payer MEDICARE, MEDICAID ==
[~2020-03-07] VITALS: Ht 175.3 cm; Wt 68.2 kg
[~2020-03-07 15:10] MED LIST changes: +NITR100C6 PO
[2020-03-07 15:40] VITALS: BP 116/79
--- NOTE | 2020-03-07 16:05 | NUR ---
the 5150 paperwork pt came in with is not valid as it does not have a pt name on it. Pt informed the dr has ordered lab work and UA. pt states she feels like she has a UTI. pt answered questions aporp
[2020-03-07 16:30] LABS: BASOPHILS # (AUTO) 0.1 X10'3 (0-0.2); BASOPHILS % (AUTO) 0.7 % (0-1); EOSINOPHILS # (AUTO) 0.1 X10'3 (0-0.9); EOSINOPHILS % (AUTO) 1.5 % (0-6); HEMATOCRIT 44.5 % (35.0-45.0); HEMOGLOBIN 15.1 g/dl (12.0-16.0); LYMPHOCYTES # (AUTO) 1.7 X10'3 (1.1-4.8); LYMPHOCYTES % (AUTO) 21.2 % (21-51); MEAN CORPUSCULAR HEMOGLOBIN 34.3 PG (27.0-31.0); MEAN PLATELET VOLUME 8.7 FL (7.4-10.4); MONOCYTES # (AUTO) 0.6 X10'3 (0-0.9); MONOCYTES % (AUTO) 6.8 % (2-12); NEUTROPHILS # (AUTO) 5.7 X10'3 (1.8-7.7); NEUTROPHILS % (AUTO) 69.8 % (42-75); PLATELET COUNT 198 X10'3 (140-440); RED BLOOD COUNT 4.41 X10'6 (4.20-5.60); RED CELL DISTRIBUTION WIDTH 13.1 % (11.5-14.5); WHITE BLOOD COUNT 8.1 X10'3 (4.5-11.0)
[2020-03-07 16:39] LABS: ALANINE AMINOTRANSFERASE 20 U/L (12-78); ALBUMIN 3.4 G/DL (3.4-5.0); ALKALINE PHOSPHATASE 74 IU/L (46-116); ANION GAP 7 (8-16); ASPARTATE AMINO TRANSFERASE 23 U/L (10-37); BILIRUBIN,TOTAL 0.6 MG/DL (0.1-1.0); BLOOD UREA NITROGEN 16 MG/DL (7-18); BUN/CREATININE RATIO 16.7 (6.6-38.0); CALCIUM 9.6 MG/DL (8.5-10.1); CHLORIDE 109 MMOL/L (99-107); CREATININE 0.96 MG/DL (0.40-0.90); ETHANOL < 0.010 GM/DL (0.0-0.010); GLUCOSE 111 MG/DL (70-104); POTASSIUM 3.7 MMOL/L (3.5-5.1); SODIUM 145 MMOL/L (135-145); TOTAL CARBON DIOXIDE 29.5 MMOL/L (24-32); TOTAL PROTEIN 6.8 G/DL (6.4-8.2); eGFR 58 ML/MIN
[2020-03-07 16:56] LABS: CLARITY,URINE CLOUDY (Clear); GLUCOSE, URINE NEGATIVE (Neg); KETONES,URINE 40 mg/dl (Neg); LEUKOCYTE ESTERASE ,URINE SMALL (Neg); NITRITES, URINE NEGATIVE (Neg); OCCULT BLOOD,URINE TRACE-INTACT (Neg); PROTEIN,URINE TRACE mg/dl (Neg)
[2020-03-07 17:07] LABS: URINE AMPHETAMINE SCREEN NEGATIVE (Neg); URINE BARBITUATE SCREEN NEGATIVE (Neg); URINE BENZODIAZEPINES SCREEN NEGATIVE (Neg); URINE CANNABINOID SCREEN NEGATIVE (Neg); URINE COCAINE SCREEN NEGATIVE (Neg); URINE METHADONE SCREEN NEGATIVE (Neg); URINE OPIATE SCREEN NEGATIVE (Neg); URINE PHENCYCLIDINE SCREEN NEGATIVE (Neg)
[2020-03-07 17:13] LABS: UA COLLECTION TYPE CLN CATCH MIDSTREAM
[2020-03-07 17:14] LABS: COLOR,URINE DARK YELLOW (Yellow); WBC,URINE TNTC /HPF (0-4)
[2020-03-07 17:15] LABS: BACTERIA,URINE 4+ /HPF (Neg); RBC,URINE 0-2 /HPF (0-2); SQUAMOUS EPITHELIAL CELL,UR FEW /LPF (FEW)
[2020-03-07] MEDS ORDERED: CEPH500C5 PO (17:43)
[2020-03-07] MEDS ORDERED: CefTRIAXone 1000mg IM Kit (w/lidocaine diluent) IM ONE (17:45)
== END 2020-03-07 18:10 | disposition home or self-care (01) ==
LOC: ER 15:11
DX: N39.0 Urinary tract infection, site not specified (principal); R11.10 Vomiting, unspecified; R19.7 Diarrhea, unspecified; R05 Cough; I10 Essential (primary) hypertension; J44.9 Chronic obstructive pulmonary disease, unspecified; F31.9 Bipolar disorder, unspecified; F12.90 Cannabis use, unspecified, uncomplicated; Z72.89 Other problems related to lifestyle; Z60.2 Problems related to living alone; Z59.0 Homelessness; Z88.5 Allergy status to narcotic agent; Z88.0 Allergy status to penicillin
CPT/HCPCS: 36415; 80053; 80305; 80320; 81001; 85025; 96372; 99283; J0696

== ENCOUNTER 2020-07-10 12:43 | Emergency (ER) | payer MEDICARE, MEDICAID ==
[~2020-07-10] VITALS: Ht 175.3 cm; Wt 75.0 kg
[~2020-07-10 12:43] MED LIST changes: -MECL-159 PO; -NAPR-1154 PO; -NITR100C6 PO
[2020-07-10] MEDS ORDERED: predniSONE 20 mg tablet PO ONE (14:10)
[2020-07-10] MEDS ORDERED: ipratropium/albuterol 3ml nebule NEB ONE (14:10)
[2020-07-10 15:24] LABS: BASOPHILS % (AUTO) 0.4 % (0-1); EOSINOPHILS # (AUTO) 0.3 X10'3 (0-0.9); EOSINOPHILS % (AUTO) 3.1 % (0-6); HEMATOCRIT 41.7 % (35.0-45.0); HEMOGLOBIN 14.1 g/dl (12.0-16.0); LYMPHOCYTES # (AUTO) 2.2 X10'3 (1.1-4.8); LYMPHOCYTES % (AUTO) 24.2 % (21-51); MEAN CORPUSCULAR HGB CONC 33.8 g/dL (33.0-36.5); MEAN CORPUSCULAR VOLUME 97.8 FL (78-98); MEAN PLATELET VOLUME 7.8 FL (7.4-10.4); MONOCYTES # (AUTO) 0.6 X10'3 (0-0.9); MONOCYTES % (AUTO) 6.4 % (2-12); NEUTROPHILS % (AUTO) 65.9 % (42-75); PLATELET COUNT 237 X10'3 (140-440); RED BLOOD COUNT 4.26 X10'6 (4.20-5.60); RED CELL DISTRIBUTION WIDTH 13.6 % (11.5-14.5); WHITE BLOOD COUNT 9.2 X10'3 (4.5-11.0)
[2020-07-10 15:39] LABS: ALANINE AMINOTRANSFERASE 16 U/L (12-78); ALBUMIN 3.5 G/DL (3.4-5.0); ALBUMIN/GLOBULIN RATIO 0.9 (1.1-1.5); ALKALINE PHOSPHATASE 89 IU/L (46-116); ANION GAP 7 (8-16); ASPARTATE AMINO TRANSFERASE 17 U/L (10-37); BILIRUBIN,TOTAL 0.4 MG/DL (0.1-1.0); BLOOD UREA NITROGEN 15 MG/DL (7-18); BUN/CREATININE RATIO 19.5 (6.6-38.0); CHLORIDE 103 MMOL/L (99-107); CREATININE 0.77 MG/DL (0.40-0.90); GLUCOSE 108 MG/DL (70-104); POTASSIUM 3.8 MMOL/L (3.5-5.1); SODIUM 138 MMOL/L (135-145); TOTAL CARBON DIOXIDE 28.4 MMOL/L (24-32); TOTAL PROTEIN 7.6 G/DL (6.4-8.2); eGFR 74 ML/MIN
[2020-07-10] MEDS ORDERED: ALBU8HFA PO (16:00)
[2020-07-10] MEDS ORDERED: PRED20TA PO (16:00)
[2020-07-10] MEDS ORDERED: AZIT-72 PO (16:00)
[2020-07-10 16:40] VITALS: BP 121/79
== END 2020-07-10 16:45 | disposition home or self-care (01) ==
LOC: ER 12:44
DX: J44.1 Chronic obstructive pulmonary disease with (acute) exacerbation (principal); R11.2 Nausea with vomiting, unspecified; I10 Essential (primary) hypertension; F31.9 Bipolar disorder, unspecified; F12.90 Cannabis use, unspecified, uncomplicated; Z72.89 Other problems related to lifestyle; Z59.0 Homelessness; Z60.2 Problems related to living alone; Z88.0 Allergy status to penicillin; Z88.5 Allergy status to narcotic agent; Z79.899 Other long term (current) drug therapy
CPT/HCPCS: 36415; 71045; 80053; 85025; 93005; 94640; 99285; J7512; 94760

== ENCOUNTER 2020-07-25 14:03 | Emergency (ER) | payer MEDICARE, MEDICAID ==
[~2020-07-25] VITALS: Ht 175.3 cm; Wt 75.0 kg
[~2020-07-25 14:03] MED LIST changes: +ALBU8HFA PO
[2020-07-25 14:17] VITALS: BP 127/84
[2020-07-25] MEDS ORDERED: diphenhydrAMINE 25mg capsule PO ONE (14:45)
[2020-07-25] MEDS ORDERED: PERM60CR19 TOP (14:56)
[2020-07-25] MEDS ORDERED: HYDR28CR14 TOP (14:56)
[2020-07-25] MEDS ORDERED: PRED20TA PO (14:56)
--- NOTE | 2020-07-25 15:00 | NUR ---
While attempting to dc pt, she indicated she was "not going to leave until the police come because I have an emergency." Explained possible lice, which none were identified w/ assessment including use of tape, is not an emergency is best handled by a pcp. pt stated she did not have a pcp rather uses the [facility]. Efforts to explain no further tx would be offered resulted in the pt become more agitated and repeating, "get the police." [facility] security called for assistance.
--- NOTE | 2020-07-25 15:08 | NUR ---
Security able to gain buy in with pt r/t dc if bus pass to [facility] provided. Pass given.
== END 2020-07-25 15:09 | disposition home or self-care (01) ==
LOC: ER 14:04
DX: I10 Essential (primary) hypertension (principal); J44.9 Chronic obstructive pulmonary disease, unspecified; F31.9 Bipolar disorder, unspecified; L25.9 Unspecified contact dermatitis, unspecified cause; F32.9 Major depressive disorder, single episode, unspecified; R42 Dizziness and giddiness; F12.10 Cannabis abuse, uncomplicated; Z59.0 Homelessness; Z88.1 Allergy status to other antibiotic agents; Z88.0 Allergy status to penicillin; Z79.899 Other long term (current) drug therapy
CPT/HCPCS: 99283; Q0163

== ENCOUNTER 2020-08-11 07:41 | Emergency (ER) | payer MEDICARE, MEDICAID ==
[~2020-08-11] VITALS: Ht 175.3 cm; Wt 72.7 kg
[~2020-08-11 07:41] MED LIST changes: -ALBU8HFA PO; +HYDR28CR14 TOP; +PERM60CR19 TOP
[2020-08-11] MEDS ORDERED: meclizine 12.5mg tablet PO ONE (08:00)
[2020-08-11 08:44] VITALS: BP 129/82
[2020-08-17] MEDS ORDERED: DOCU100C40 PO (11:41)
[2020-08-17] MEDS ORDERED: HYDR-3686 PO (11:41)
[2020-08-17] MEDS ORDERED: ASPI-1265 PO (11:41)
[2020-08-17] MEDS ORDERED: MECL-184 PO (11:41)
[2020-08-17] MEDS ORDERED: HYDR12.55 PO (11:41)
[2020-08-17] MEDS ORDERED: DOCU250C96 PO (11:41)
[2020-08-17] MEDS ORDERED: TRIA1CAP6 PO (20:10)
[2020-08-18] MEDS ORDERED: METO-395 PO (10:24)
[2020-08-21] MEDS ORDERED: APIX5TAB3 PO (09:13)
== END 2020-08-11 10:34 | disposition home or self-care (01) ==
LOC: ER 07:42
DX: J44.1 Chronic obstructive pulmonary disease with (acute) exacerbation (principal); Z20.828 Contact with and (suspected) exposure to other viral communicable diseases; I11.0 Hypertensive heart disease with heart failure; F12.90 Cannabis use, unspecified, uncomplicated; Z59.0 Homelessness; Z88.0 Allergy status to penicillin; Z88.5 Allergy status to narcotic agent
CPT/HCPCS: 71045; 87635; 99284; C9803; J8597

== ENCOUNTER 2020-08-23 15:55 | Emergency (ER) | payer MEDICARE, MEDICAID ==
[~2020-08-23] VITALS: Ht 175.3 cm; Wt 82.0 kg
[~2020-08-23 15:55] MED LIST changes: +APIX5TAB3 PO; +ASPI-1265 PO; +DOCU250C96 PO; +HYDR-3686 PO; +MECL-184 PO; +METO-395 PO; -NO HOME MEDS; -PERM60CR19 TOP; +TRIA1CAP6 PO
[2020-08-23] MEDS ORDERED: MECL-159 PO (16:38)
[2020-08-23] MEDS ORDERED: ONDA4TAB6 PO (16:38)
[2020-08-23] MEDS ORDERED: meclizine 12.5mg tablet PO ONE (16:40)
[2020-08-23] MEDS ORDERED: ondansetron 4mg rapidly disintigrating tab PO ONE (16:40)
[2020-08-23] MEDS ORDERED: metoprolol succinate 25mg (24-HOUR) SR. Tablet PO ONE (16:47)
[2020-08-23 17:05] VITALS: BP 110/70
== END 2020-08-23 17:03 | disposition home or self-care (01) ==
LOC: ER 15:55
DX: I48.0 Paroxysmal atrial fibrillation (principal); H81.10 Benign paroxysmal vertigo, unspecified ear; I10 Essential (primary) hypertension; J44.9 Chronic obstructive pulmonary disease, unspecified; F12.90 Cannabis use, unspecified, uncomplicated; Z59.0 Homelessness; Z88.0 Allergy status to penicillin; Z88.8 Allergy status to other drugs, medicaments and biological substances; Z79.82 Long term (current) use of aspirin; Z79.899 Other long term (current) drug therapy
CPT/HCPCS: 99284; J8597; 93005

== ENCOUNTER 2020-09-14 08:46 | Emergency (ER) | payer MEDICARE, MEDICAID ==
[~2020-09-14] VITALS: Ht 175.3 cm; Wt 72.7 kg
[~2020-09-14 08:46] MED LIST changes: +MECL-159 PO; +ONDA4TAB6 PO
--- NOTE | 2020-09-14 09:11 | NUR ---
Dr. Crandall notified of pt and situation
--- NOTE | 2020-09-14 09:52 | NUR ---
Pt with poor veins, unable to get IV or blood, Gal RN pg'ed to attempt
[2020-09-14 10:54] LABS: BASOPHILS % (AUTO) 0.5 % (0-1); EOSINOPHILS # (AUTO) 0.1 X10'3 (0-0.9); EOSINOPHILS % (AUTO) 1.1 % (0-6); HEMATOCRIT 41.9 % (35.0-45.0); HEMOGLOBIN 14.1 g/dl (12.0-16.0); LYMPHOCYTES # (AUTO) 2.2 X10'3 (1.1-4.8); MEAN CORPUSCULAR HEMOGLOBIN 32.8 PG (27.0-31.0); MEAN CORPUSCULAR HGB CONC 33.7 g/dL (33.0-36.5); MEAN CORPUSCULAR VOLUME 97.3 FL (78-98); MEAN PLATELET VOLUME 7.8 FL (7.4-10.4); MONOCYTES # (AUTO) 0.4 X10'3 (0-0.9); MONOCYTES % (AUTO) 6.2 % (2-12); NEUTROPHILS # (AUTO) 4.3 X10'3 (1.8-7.7); NEUTROPHILS % (AUTO) 61.2 % (42-75); PLATELET COUNT 216 X10'3 (140-440); RED BLOOD COUNT 4.31 X10'6 (4.20-5.60); RED CELL DISTRIBUTION WIDTH 13.9 % (11.5-14.5)
[2020-09-14 11:08] LABS: ALANINE AMINOTRANSFERASE 15 U/L (12-78); ALBUMIN 3.5 G/DL (3.4-5.0); ALBUMIN/GLOBULIN RATIO 0.9 (1.1-1.5); ALKALINE PHOSPHATASE 68 IU/L (46-116); ANION GAP 4 (8-16); ASPARTATE AMINO TRANSFERASE 14 U/L (10-37); BILIRUBIN,TOTAL 0.3 MG/DL (0.1-1.0); BLOOD UREA NITROGEN 16 MG/DL (7-18); BUN/CREATININE RATIO 22.9 (6.6-38.0); CALCIUM 9.4 MG/DL (8.5-10.1); CHLORIDE 105 MMOL/L (99-107); GLUCOSE 85 MG/DL (70-104); POTASSIUM 3.6 MMOL/L (3.5-5.1); SODIUM 143 MMOL/L (135-145); TOTAL CARBON DIOXIDE 34.4 MMOL/L (24-32); TOTAL PROTEIN 7.3 G/DL (6.4-8.2); eGFR 83 ML/MIN
--- NOTE | 2020-09-14 12:26 | NUR ---
all belongings secured outside of pt's room
[2020-09-14 15:00] LABS: URINE AMPHETAMINE SCREEN NEGATIVE (Neg); URINE BARBITUATE SCREEN NEGATIVE (Neg); URINE BENZODIAZEPINES SCREEN NEGATIVE (Neg); URINE CANNABINOID SCREEN NEGATIVE (Neg); URINE COCAINE SCREEN NEGATIVE (Neg); URINE METHADONE SCREEN NEGATIVE (Neg); URINE OPIATE SCREEN NEGATIVE (Neg); URINE PHENCYCLIDINE SCREEN NEGATIVE (Neg)
--- NOTE | 2020-09-14 15:47 | NUR ---
Pt moved from ED bed 4 to ED bed 9 and this nurse assumed care of the patient.
--- NOTE | 2020-09-14 16:22 | NUR ---
Pt is in a position of comfort on the gurney. Pt's medications sent to the pharmacy until discharge to home. Pt's belongings secured in a locked cabinet.
[2020-09-14 16:53] LABS: CLARITY,URINE CLEAR (Clear); COLOR,URINE YELLOW (Yellow); GLUCOSE, URINE NEGATIVE (Neg); KETONES,URINE NEGATIVE (Neg); LEUKOCYTE ESTERASE ,URINE NEGATIVE (Neg); NITRITES, URINE NEGATIVE (Neg); OCCULT BLOOD,URINE NEGATIVE (Neg); PH,URINE 6.5 (4.8-8.0); PROTEIN,URINE NEGATIVE (Neg); UROBILINOGEN,URINE 0.2 E.U/dL (0.2-1.0)
[2020-09-14 16:54] LABS: UA COLLECTION TYPE CLN CATCH MIDSTREAM
[2020-09-14] MEDS ORDERED: acetaminophen 325mg tablet PO ONE (17:20)
--- NOTE | 2020-09-14 17:21 | NUR ---
Pt resting, will medicate for headache momentarily.
--- NOTE | 2020-09-14 17:33 | NUR ---
PACKET FAXED TO [facility]
--- NOTE | 2020-09-14 18:07 | NUR ---
Pt has no change in condition, awaiting mental health evaluation.
[2020-09-14 18:23] LABS: ETHANOL < 0.010 GM/DL (0.0-0.010)
--- NOTE | 2020-09-14 18:24 | NUR ---
Pt moved from ED bed 9 to Overflow area. Report to Crystal Giraldo RN
--- NOTE | 2020-09-14 18:30 | NUR ---
Pt brought to ER Overflow bed 20 via gurney because pt stated she was too dizzy to ambulate to the bed. Pt however was able to stand and transfer to bed once wheeled over close to the bed. Pt was in a hospital gown at time of transfer and was changed into green scrubs when brought to overflow. Pt calm and cooperative during transfer and immediately settled into bed. Pt c/o "feeling like the ground is shaking"
[2020-09-14] MEDS ORDERED: MELA3TAB70 PO (22:10)
[2020-09-14] MEDS ORDERED: MECL-159 PO (22:14)
[2020-09-14] MEDS ORDERED: APIX5TAB3 PO (22:14)
[2020-09-14] MEDS ORDERED: hydrOXYzine 25 MG tablet PO PRN (22:30)
[2020-09-14] MEDS ORDERED: meclizine 12.5mg tablet PO PRN (22:30)
[2020-09-14] MEDS ORDERED: Melatonin 3mg tablet PO SCH (22:35)
[2020-09-14] MEDS ORDERED: Melatonin 3mg tablet PO ONE (22:35)
--- NOTE | 2020-09-15 01:00 | NUR ---
Aamir winchester in [facility] - 09/16/20 at 0303 by LILY Pt resting, RR 18, snoring.
--- NOTE | 2020-09-15 04:56 | NUR ---
Patient is currently lying in bed and appears to be resting comfortably. No apparent s/s of distress noted. Earlier tonight pt was able to ambulate independently while using her walker to the restroom and back to bed with no assistance needed.
--- NOTE | 2020-09-15 06:20 | NUR ---
Assumed care of pt. Recevied report from CECE Rojas. Pt is sleeping comfortably on left side. No distress noted, rr even and unlabored.
--- NOTE | 2020-09-15 07:24 | NUR ---
Pt continues to sleep comfortably. Pt in supine position, no distress noted, rr even and unlabored.
--- NOTE | 2020-09-15 08:31 | NUR ---
Pt finished her breakfast and appears to be sleeping with no distress noted.
[2020-09-15] MEDS: aspirin 81mg tab.chew PO SCH (09:14)
[2020-09-15] MEDS: apixaban 5mg tablet PO SCH ×2 (09:14→21:23)
[2020-09-15] MEDS: triamterene/HCTZ 37.5/25mg tablet PO SCH (09:22)
--- NOTE | 2020-09-15 09:34 | NUR ---
Pt is awoken for medication and 1:1 assessment. Pt is calm and mostly cooperative. Pt states she is "feeling tired." Pt ate 100% of her breakfast. Pt does not want to engage in convesation with journalists and other writers, but does answer a few questions. Pt continues to endorse SI, with a plan to OD on "pills." Can I go to sleep now." Pt was observed walking to bathroom using her walker. Pt ambulates with a steady gait. Pt denies A/VH. No paranoid remarks made during assessment. Will monitor throughout the day.
--- NOTE | 2020-09-15 10:33 | NUR ---
Pt sleeping comfortably on left side, no distress noted. RR even and unlabored.
[2020-09-15] MEDS ORDERED: acetaminophen 325mg tablet PO ONE ×2 (12:15→17:30)
--- NOTE | 2020-09-15 12:19 | NUR ---
Pt c/o headache 02/27. Received order for Tylenol 650mg. Will monitor for effectiveness. Pt calm, lying in bed in supine position. Applied cool washcloth to head.
--- NOTE | 2020-09-15 14:19 | NUR ---
Pt is lying in bed with eyes open. Pt reports a decrease in her headache pain 2/10. No distress noted.
--- NOTE | 2020-09-15 16:19 | NUR ---
Pt lying on her bed reading magazines. Pt presents with an intermittent cough, no distress noted. Patient had snack of crackers and yogurt.
--- NOTE | 2020-09-15 17:25 | NUR ---
Pt c/o "my heart is racing." Otained vitals BP 106/71; 66 HR; 15 RR; 94% O2. Pt states "I am bottoming out." Pt has order for PRN Meclinzine for vertigo. Pt also reported feeling "dizzy" and having a headache. Pt was administered Tylenol earlier in the shift with effect. Informed Dr. Schwartz, received order for Meclizine 40mg and Tylenol 650mg. Will continue to monitor.
[2020-09-15] MEDS ORDERED: meclizine 12.5mg tablet PO ONE ×2 (17:35→17:55)
--- NOTE | 2020-09-15 17:58 | NUR ---
Pt sitting on side of her bed eating dinner. Pt reports "feeling better." No distress observed. Will endorse to next shift.
--- NOTE | 2020-09-15 19:45 | NUR ---
Pt resting at this time, reading a magazine. Pt states she has had some relied from her symptoms since medicated. 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
[2020-09-15] MEDS ORDERED: Melatonin 3mg tablet PO SCH (21:00)
[2020-09-15] MEDS ORDERED: docusate sod 250mg capsule PO SCH (21:00)
--- NOTE | 2020-09-15 21:05 | NUR ---
Pt resting, reading magazines.
--- NOTE | 2020-09-16 01:00 | NUR ---
Pt resting comfortably, snoring [id number]
--- NOTE | 2020-09-16 03:03 | NUR ---
Pt snoring, RR18 appears to be resting comfortably, recently went to bathroom.
[2020-09-16 04:18] VITALS: BP 111/74
--- NOTE | 2020-09-16 05:57 | NUR ---
Pt continues to sleep, RR 16, audible snoring
--- NOTE | 2020-09-16 07:00 | NUR ---
Received pt asleep in bed without signs of distress. Pt up once to the bathroom. Pt had very steady gait with the use of her walker.
[2020-09-16] MEDS: triamterene/HCTZ 37.5/25mg tablet PO SCH (08:07)
[2020-09-16] MEDS: aspirin 81mg tab.chew PO SCH (08:07)
[2020-09-16] MEDS: apixaban 5mg tablet PO SCH (08:07)
--- NOTE | 2020-09-16 09:00 | NUR ---
Pt awoke for breakfast and was cooperative with am assessment and took her medications. Pt has now returned to sleep.
[2020-09-16] MEDS ORDERED: acetaminophen 325mg tablet PO ONE (10:00)
--- NOTE | 2020-09-16 11:00 | NUR ---
Pt awoke and requested tylenol for a headache, which she received. Pt returned to sleep.
--- NOTE | 2020-09-16 13:00 | NUR ---
Pt currently awake for lunch. Pt has been sleeping with no distress noted.
[2020-09-27] MEDS ORDERED: HYDR-3686 PO (12:37)
[2020-09-27] MEDS ORDERED: ZOLP5TAB8 PO ×2 (12:37→12:39)
[2020-09-27] MEDS ORDERED: DULO30CA52 PO ×2 (12:37)
[2020-09-27] MEDS ORDERED: COL250C PO (12:37)
[2020-09-27] MEDS ORDERED: MELA3TAB39 PO (12:37)
[2020-09-27] MEDS ORDERED: HYDROchlorothiazide tablet PO (12:37)
[2020-09-27] MEDS ORDERED: NYSPWD TP (12:37)
[2020-09-27] MEDS ORDERED: MECL-159 PO (12:37)
[2020-09-27] MEDS ORDERED: ARIP10TA15 PO (12:37)
[2020-09-27] MEDS ORDERED: APIX5TAB3 PO (12:37)
[2020-09-27] MEDS ORDERED: ASPI-1265 PO (12:37)
[2020-09-27] MEDS ORDERED: ATOR40TA71 PO (12:37)
[2020-10-03] MEDS ORDERED: TRAZ-251 PO (06:54)
== END 2020-09-16 15:42 ==
LOC: ER 08:47
DX: R45.851 Suicidal ideations (principal); R05 Cough; R11.2 Nausea with vomiting, unspecified; Z20.828 Contact with and (suspected) exposure to other viral communicable diseases; I10 Essential (primary) hypertension; F31.9 Bipolar disorder, unspecified; J44.1 Chronic obstructive pulmonary disease with (acute) exacerbation; F17.200 Nicotine dependence, unspecified, uncomplicated; Z59.0 Homelessness; Z88.0 Allergy status to penicillin; Z88.5 Allergy status to narcotic agent; Z79.899 Other long term (current) drug therapy
CPT/HCPCS: 99285; J8597; 36415; 71045; 80053; 80305; 80320; 81003; 83880; 84484; 85025; 87635; 93005; C9803